=== PATIENT | female | born 1990 | race African-American/Black ===

== ENCOUNTER 2016-12-07 18:22 | Emergency (ER) | payer OTHER, SELFPAY ==
--- NOTE | 2016-12-07 19:41 | RAD ---
RIGHT FOREARM TWO VIEWS: 12/07/16 HISTORY: 26-year-old female with right forearm pain following an injury. IMPRESSION: No fracture, dislocation or other significant acute osseous abnormality. POS: DELORES
== END 2016-12-07 20:45 | disposition home or self-care (01) ==
LOC: ERS 18:22
DX: S50.11XA Contusion of right forearm, initial encounter (principal); W22.8XXA Striking against or struck by other objects, initial encounter

== ENCOUNTER 2017-04-19 20:57 | Emergency (ER) | payer SELFPAY ==
[2017-04-19 21:59] LABS: Bilirubin Negative (Negative); Blood, Urine Negative (Negative); Clarity CLEAR (Clear); Glucose, Urine (Dipstick) Negative (Negative); Leukocyte Negative (Negative); Nitrite Negative (Negative); Protein, Urine (Dipstick) Negative (Neg-Trace); Specific Gravity, Urine 1.008 (1.002-1.036); Urobilinogen 0.2 mg/dL (0.2-1.0); pH, Urine 7.5 (5.0-9.0)
== END 2017-04-19 22:40 | disposition home or self-care (01) ==
LOC: ERS 20:57
DX: O99.89 Other specified diseases and conditions complicating pregnancy, childbirth and the puerperium (principal); R10.31 Right lower quadrant pain; Z3A.12 12 weeks gestation of pregnancy
CPT/HCPCS: 81003

== ENCOUNTER 2017-07-20 13:30 | Outpatient (CLI) | payer OTHER ==
--- NOTE | 2017-07-20 15:07 | ULT ---
OB ULTRASOUND: HISTORY: female. Evaluate size, dates, and anatomy. TECHNIQUE: Multiplanar, reyes scale, and color Doppler images were obtained in a transabdominal ultrasound. FINDINGS: There is a single live intrauterine with heart rate of 143 b.p.m. Estimated age of the fet us based off today's examination is 23 weeks 6 days. A survey was performed which is unremarka ble. The head, intracranial structures, heart, stomach, kidneys, umbilical cord, umbilical cord inse rtion, spine, face, and extremities were evaluated and were normal. The following measurements were taken and dates based off these measurements based off these measures are as follows: BPD 5.98 cm, 24 weeks 3 days HC 22.96 cm, 24 weeks 1 day AC 18.74 cm, 23 weeks 4 days FL 4.21 cm, 23 weeks 5 days The placenta is posterior in location without focal abnormality. MELISSA is 13.8 cm, which is normal. T he cervix is normal in length without evidence of placenta previa. IMPRESSION: Single live intrauterine with estimated age of 23 weeks 6 days. POS: DELORES
== END 2017-07-20 13:31 | disposition home or self-care (01) ==
LOC: SCSULT 13:30
PROVIDERS: ATTEND Nurse Practitioner
DX: Z34.82 Encounter for supervision of other normal pregnancy, second trimester (principal); Z3A.23 23 weeks gestation of pregnancy
CPT/HCPCS: 76805

== ENCOUNTER 2019-09-20 20:17 | Emergency (ER) | payer OTHER, SELFPAY ==
[2019-09-20 20:48] LABS: Bacteria/HPF 4+ HPF (None Seen); Bilirubin Negative (Negative); Blood, Urine Negative (Negative); Clarity Turbid (Clear); Glucose, Urine (Dipstick) Normal (Negative); Ketone, Urine Negative (Negative); Leukocyte 500 Leu/uL (Negative); Nitrite 2+ (Negative); Protein, Urine (Dipstick) 20 mg/dL (Neg-Trace); RBC/HPF 0-3 HPF (0-3); Specific Gravity, Urine 1.016 (1.002-1.036); WBC/HPF 21-50 HPF (0-3); pH, Urine 6.5 (5.0-9.0)
[2019-09-20 21:33] LABS: Pregnancy Test - Urine (BHCG) POSITIVE (Negative)
[2019-09-20 21:34] LABS: Pregu Control Background? CLEAR/WHITE (CLR/WHITE); Pregu Control Bar Appear? YES (CONTROL BAR); Specific Gravity 1.016 (1.002-1.036)
== END 2019-09-20 22:13 | disposition home or self-care (01) ==
LOC: ERS 20:17
DX: O23.41 Unspecified infection of urinary tract in pregnancy, first trimester (principal); O99.331 Smoking (tobacco) complicating pregnancy, first trimester; F17.210 Nicotine dependence, cigarettes, uncomplicated
CPT/HCPCS: 81003; 81015; 81025; 99283

== ENCOUNTER 2020-01-02 12:26 | Inpatient (IN) | payer SELFPAY ==
[2020-01-02] MEDS ORDERED: Butorphanol Tartrate 1 MG/ML VIAL ONE (13:06)
[2020-01-02] MEDS ORDERED: Promethazine HCl 25 MG/ML VIAL IM PRN ×2 (13:25→17:27)
[2020-01-02] MEDS ORDERED: HYDROcodone/Acetaminophen 5/325 mg Tablet PO PRN ×3 (13:25→17:27)
[2020-01-02] MEDS ORDERED: Ibuprofen 800 MG TAB PO PRN (13:25)
[2020-01-02] MEDS ORDERED: hydrALAZINE 20 MG/ML VIAL SLOW IVP PRN ×2 (13:25→17:27)
[2020-01-02] MEDS ORDERED: Ondansetron PF 4 MG/2 ML Vial IVP PRN ×2 (13:25→17:27)
[2020-01-02] MEDS ORDERED: Lidocaine 1% (PF) 30 ML VIAL SC PRN (13:25)
[2020-01-02] MEDS ORDERED: Butorphanol Tartrate 1 MG/ML VIAL SLOW IVP PRN (13:25)
[2020-01-02] MEDS ORDERED: Lactated Ringer's 1,000 ML IV SCH ×2 (13:25)
[2020-01-02] MEDS ORDERED: NS / Oxytocin 40 units/1000ml 1,000 ML IV PRN (13:25)
--- NOTE | 2020-01-02 13:33 | DN ---
DATE OF PROCEDURE: 01/02/2020 TIME OF SERVICE: Approximately 1245 hours. PREDELIVERY DIAGNOSES: No care, assumed term gestation, cephalic, imminent delivery. POSTDELIVERY DIAGNOSES: No care, assumed term gestation, cephalic, imminent delivery, first to second-degree midline laceration. PROCEDURES PERFORMED: Spontaneous vaginal delivery in the emergency room with delivery of placenta in Labor and Delivery and repair of obstetrical laceration in Labor and Delivery. ANESTHESIA: 10 mL of 1% lidocaine. DISPOSITION: Routine recovery. FINDINGS: 1. Vigorous female , Apgars and weight are pending, to nursery. 2. Placenta delivered intact. 3. First to second-degree laceration of the perineal body, repaired with 2-0 chromic. DESCRIPTION OF PROCEDURE: Please see H and P for the history of the patient. She was noted to be complete, complete, and over one contraction, pushed for approximately 30 seconds and delivered spontaneous controlled manner in the Labor and Delivery Department. The was bundled, warmed, and delayed cord clamped and handed off to the team in attendance. The patient was then taken up to the Labor and Delivery unit. Upon presentation to Labor and Delivery unit, the placenta was delivering spontaneously. Cord blood sample was obtained and sent for analysis. The patient was prepped and lidocaine with epinephrine was injected for pain relief. The patient's behavior was somewhat uncontrolled. Decision was made to give her some Stadol and Phenergan. A straight catheterization was introduced and a urine sample was obtained from the patient prior to the administration of any medications other than IV fluids and Pitocin. This was sent for urine drug screen. Stadol and Phenergan were then given at a dose of 2 mg and 25 IV/IM. After this was done, vaginal prep was carried out and obstetrical laceration was identified, closed using a running continuous 2-0 chromic in the usual manner. Good hemostasis was noted. Counts were correct and the patient was entered into routine care. Job ID: [id number]
--- NOTE | 2020-01-02 13:37 | HP ---
PRESENTING COMPLAINT: Near term gestation, no care, in ambulance. HISTORY OF PRESENT ILLNESS: Ms. Aguilar is a 29-year-old, 3, para 2, unknown ROSA, no antepartum care during this because of the gutierrez stsol, whose water broke earlier in the day, she called the ambulance approximately 12:15, and they presented to the emergency department approximately 12:30. I was there present and when she arrived, she was examined and noted to be complete, complete, and +2. The patient is uncooperative, but reasonably cooperative with history taking. 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 Blood type is A positive with previous pregnancies. PAST MEDICAL HISTORY: Denies. PAST SURGICAL HISTORY: Denies. ALLERGIES: DENIES. MEDICATIONS: Denies. SOCIAL HISTORY: Denies drug abuse, although the patient's behavior is somewhat suspicious for that. FAMILY HISTORY: Noncontributory. REVIEW OF SYSTEMS: Noncontributory. PHYSICAL EXAMINATION: VITAL SIGNS: Blood pressure 148/72, pulse 85, respirations 18, and temperature 99.1. HEENT: Within normal limits. LUNGS: Clear to auscultation bilaterally. HEART: Regular rhythm. ABDOMEN: Soft, nontender except during contractions. Fundal height of 39, EFW of 7.5 pounds. : Vulvar lesions. Vagina, ruptured fluid. Cervix; complete, complete, +2 station, cephalic. EXTREMITIES: No clubbing, cyanosis, or edema. IMPRESSION: No care. Apparent term near delivery. PLAN: Stay in emergency room, deliver vaginally in the emergency room and proceed to Labor and Delivery for further care. Job ID: [id number]
[2020-01-02 13:55] VITALS: BMI 22.4
[2020-01-02 14:09] LABS: Amphetamine Detected (NotDetected); Barbiturates Screen Not Detected (NotDetected); Benzodiazepine Screen Not Detected (NotDetected); Cocaine Metabolite Screen Not Detected (NotDetected); Medtox Control Line Valid? VALID (VALID); Medtox Reader # READER 1; Methadone Not Detected (NotDetected); Methamphetamine Detected (NotDetected); Opiate Screen Not Detected (NotDetected); Oxycodone Screen Not Detected (NotDetected); Phencyclidine (PCP) Not Detected (NotDetected); THC/Cannabinoid Screen Detected (NotDetected); Tricyclic Screen Not Detected (NotDetected)
[2020-01-02 15:32] LABS: Hemoglobin 5.5 g/dL (12.0-16.0); Mean Corpuscular HGB CONC 28.6 g/dL (32.0-36.0); Mean Corpuscular Hemoglobin 19.8 pg (27.0-31.0); Mean Corpuscular Volume 69.3 fL (78.0-98.0); Mean Platelet Volume 10.9 fL (7.4-10.4); Platelet Count 201 thou/uL (130-400); RBC Distribution Width 23.1 % (11.5-14.5); Red Blood Cell (RBC) Count 2.77 mill/uL (4.20-5.40); White Blood Cell (WBC) Count 17.9 thou/uL (4.8-10.8)
[2020-01-02 15:51] LABS: HBSAg Index 0.18 S/CO (0-0.99); HIV (1/2) Antibody/Antigen Non-Reactive (NonReactive); HIV 1/2 INDEX 0.09 S/CO (<1.00); Hep B Surf Ag Non-Reactive S/CO (NonReactive)
[2020-01-02 16:05] LABS: Syphilis Antibody Nonreactive (Nonreactive); Syphilis Antibody Index 0.06 S/CO (<1.00 Non-Reactive)
[2020-01-02] MEDS ORDERED: Benzocaine-Menthol 82.5 ML CAN TOP PRN (17:27)
[2020-01-02] MEDS ORDERED: diphenhydrAMINE 25 MG CAP PO PRN (17:27)
[2020-01-02] MEDS ORDERED: Bisacodyl 10 MG SUPP PR PRN (17:27)
[2020-01-02] MEDS ORDERED: Milk Of Magnesia 30 ML UDCUP PO PRN (17:27)
[2020-01-02] MEDS ORDERED: Preparation H Ointment 28 GM TUBE PR PRN (17:27)
[2020-01-02] MEDS ORDERED: Adacel (T-DAP) 0.5 ML SYRINGE IM ONE (17:27)
[2020-01-02] MEDS ORDERED: NS / Oxytocin 40 units/1000ml 1,000 ML IV SCH (17:30)
[2020-01-02] MEDS: HYDROcodone/Acetaminophen 5/325 mg Tablet PO PRN (19:53)
[2020-01-02] MEDS: Docusate Calcium (SURFAK) 240 MG CAP PO SCH (19:53)
[2020-01-02] MEDS: Ibuprofen 800 MG TAB PO SCH (22:29)
[2020-01-03] MEDS: Ibuprofen 800 MG TAB PO SCH ×5 (00:30→23:41)
[2020-01-03] MEDS: HYDROcodone/Acetaminophen 5/325 mg Tablet PO PRN ×3 (05:32→21:02)
--- NOTE | 2020-01-03 07:38 | PRG ---
DATE OF SERVICE: 01/03/2020 TIME OF SERVICE: 0700. SUBJECTIVE: Ms. Aguilar is resting comfortably this morning. She has no complaints. Nurses report normal lochia. No elevated QBL. OBJECTIVE: VITAL SIGNS: Temperature 98.6, pulse 73, respirations 14, blood pressure 135/94. HEENT: Within normal limits. LUNGS: Clear to auscultation bilaterally. HEART: Regular rhythm. ABDOMEN: Her fundus is firm. Nontender. EXTREMITIES: Without clubbing, cyanosis, or edema. LABORATORY DATA: Hematocrit was 19.2% with a hemoglobin of 5.5, white count was 17.9 on admission, platelet count was 201. Urine drug screen was positive for methamphetamines and cannabinoids. HIV, hepatitis B, and syphilis are negative. COVID testing pending. IMPRESSION: 1. No care, status post delivery at term. 2. First-degree laceration repaired. 3. Maternal drug use with positive drug screen at delivery. 4. Chronic iron deficiency anemia. PLAN: Routine care. Anticipate keeping the patient for another day. CPS involvement and Social Work consult. We will follow the patient clinically. No indication for blood transfusion at this time as patient has negative symptoms and negative pulsatile. Job ID: [id number]
[2020-01-03] MEDS: Ferrous Sulfate 325 MG TAB PO SCH ×2 (08:11→16:39)
[2020-01-03] MEDS: Docusate Calcium (SURFAK) 240 MG CAP PO SCH ×2 (08:11→21:02)
[2020-01-03] MEDS: Prenatal Vitamin 1 TAB PO SCH (08:11)
--- NOTE | 2020-01-03 09:59 | PDOC.BPN ---
- Brief Progress Note Encounter Date: 01/03/20 Encounter Time: 09:[address] Concepcion. Noted delivery in ED with pos screen for methampethamines. CPS has been involved. Patient cleared by Dr Concepcion for PM DC and I placed the order. We have notified case management.
[2020-01-03 11:58] LABS: SARS-CoV-2 MS2 Positive; SARS-CoV-2 N Gene Negative; SARS-CoV-2 S Gene Negative; SARS-CoV-2 by NAA Not Detected (NotDetected); SARS-CoV-2 orf1ab Negative
--- NOTE | 2020-01-03 16:21 | PDOC.BPN ---
- Brief Progress Note Encounter Date: 01/03/20 Encounter Time: 16:20 Patient cleared for DC this pm but she desires to stay until tomorrow. We will hold today and resume DC order tomorrow AM if all well
[2020-01-04] MEDS: Ibuprofen 800 MG TAB PO SCH ×4 (00:24→19:41)
--- NOTE | 2020-01-04 05:13 | PDOC.BPN ---
- Brief Progress Note Encounter Date: 01/04/20 Encounter Time: 05:10 vitals reviewed. No acute issues. case also reviewed with Kayla on PP. Resume DC order this AM.
[2020-01-04] MEDS: HYDROcodone/Acetaminophen 5/325 mg Tablet PO PRN (05:57)
[2020-01-04] MEDS: Docusate Calcium (SURFAK) 240 MG CAP PO SCH ×2 (09:40→22:06)
[2020-01-04] MEDS: Ferrous Sulfate 325 MG TAB PO SCH ×2 (09:40→19:41)
[2020-01-04] MEDS: Prenatal Vitamin 1 TAB PO SCH (09:40)
--- NOTE | 2020-01-04 16:07 | OP ---
DATE OF PROCEDURE: 01/04/2020 TIME OF SERVICE: 1530 hours. Ms. Aguilar is a 29-year-old G3, P3, now well known to me. I delivered her in the emergency room 2 days ago with no care or positive methamphetamines. She was taken back to Labor and Delivery after vaginal delivery for delivery of placenta. She was quite uncooperative and inconsolable, likely secondary to both pain and her methamphetamine intoxication. She delivered her placenta spontaneously and was noted to have slight accessory lobe, but seen to deliver intact. She had a first-degree laceration repair performed under local anesthetic with IV sedation. Today, she was getting ready to be discharged home and stated something was coming out of her vagina. Nurse called me to view and the patient was noted to have membranes coming out of the vagina. The patient was very cooperative in bed, was in frog-legged position. Upon pulling on this area, it seemed to be consistent with more retained accessory lobe with membranes. Gentle traction was applied and over the course about 5 minutes, delivered spontaneously. Digital exam did not reveal any further placenta or membranes and bleeding was minimal. The patient's hematocrit was 19.2 with a hemoglobin of 5.5, however, throughout the period, she has been afebrile with a pulse in the 80s. Secondary to this, decision was made not to perform blood transfusion, only discharge the patient home on oral iron. Discussed with the patient options and at this point in time, we will observe for another hour. If everything is fine and no significant bleeding noted, we will discharge home. ER precautions for fever, uterine tenderness, etc. The patient's uterus was noted to be very nontender and she had no foul-smelling discharge during this procedure. Remainder of placenta was not sent for pathology as it was grossly within normal limits. Job ID: [id number]
--- NOTE | 2020-01-04 17:35 | PRG ---
DATE OF SERVICE: 01/04/2020 TIME OF SERVICE: 1700 hours. Ms. Aguilar is doing well. Her bleeding is minimal. She is however having continued pulse in the 100 to 105 range. Considering the patient's hemoglobin of 5.5, secondary to chronic iron deficiency anemia and her state, we will go ahead and transfuse 1 unit of PRBCs and observe the patient overnight. Anticipate discharge home on 11/01 a.m. Job ID: [id number]
[2020-01-05] MEDS: Ibuprofen 800 MG TAB PO SCH (05:35)
--- NOTE | 2020-01-05 07:06 | PDOC.PP ---
Post Progress Note Post Day #: 3 Subjective: No complaints this morning. States she really isnt having much of any vaginal bleeding at this point. No fevers/chills, abdominal pain. PO intake tolerated: yes Flatus: yes Ambulation: yes Vital Signs (12 hours) Temp Pulse Pulse Resp BP BP Pulse Ox 01/05/20 05:35 98.9 F 88 16 148/74 H 100 01/05/20 01:48 [place] 98.3 F 83 16 134/80 100 01/04/20 22:06 98.6 F 92 18 133/72 Weight Weight 61.235 kg - Physical Examination General: NAD Cardiovascular: RRR Respiratory: clear to auscultation bilaterally Abdominal: + bowel sounds, no distention, appropriately TTP Neurological: no gross focal deficits Psychiatric: A&Ox3, normal affect Result Diagrams: 01/02/20 14:52 Additional Labs: Post Labs Hep Bs Antigen Non-Reactive S/CO (NonReactive) 01/02/20 14:40 Rubella IgG Antibody 1.81 index (Immune >0.99) 01/02/20 14:52 Blood Type A POSITIVE 01/02/20 14:52 - Assessment/Plan No care Presumed 3T - delivered via Polysubstance abuse Retained POC -Received 1 unit PRBC yesterday, symptomatically improved w/o complaints this morning -Plans to follow up with Dr. Donald -PP course has progressed normally outside of OC - no further vaginal bleeding Plan: DC home later this morning. F/u w/ Dr. Donald 2 weeks.
[2020-01-05] MEDS: Docusate Calcium (SURFAK) 240 MG CAP PO SCH (08:59)
[2020-01-05] MEDS: Ferrous Sulfate 325 MG TAB PO SCH (08:59)
[2020-01-05] MEDS: Prenatal Vitamin 1 TAB PO SCH (08:59)
[2020-01-05 09:26] VITALS: BP 142/79; TEMP 98.5
== END 2020-01-05 12:35 | disposition home or self-care (01) | DRG 806 ==
LOC: ERS 12:26 → L&D 12:31 → 3SW 16:35
PROVIDERS: ADMIT Family Medicine; ATTEND Family Medicine
PROC: 10E0XZZ Delivery of Products of Conception, External Approach (ICD-10-PCS; principal; 2020-01-02)
PROC: 0KQM0ZZ Repair Perineum Muscle, Open Approach (ICD-10-PCS; 2020-01-02)
DX: O62.3 Precipitate labor (principal); O99.324 Drug use complicating childbirth; Z37.0 Single live birth; Z20.828 Contact with and (suspected) exposure to other viral communicable diseases; F19.10 Other psychoactive substance abuse, uncomplicated; O99.02 Anemia complicating childbirth; D50.9 Iron deficiency anemia, unspecified; O70.1 Second degree perineal laceration during delivery; Z3A.00 Weeks of gestation of pregnancy not specified
CPT/HCPCS: 36415; 36430; 80306; 85027; 86762; 86780; 86850; 86900; 86901; 87340; 87389; 87635; 99284; 99285; P9016; U0003

== ENCOUNTER 2020-07-23 14:53 | Emergency (ER) | payer SELFPAY ==
[2020-07-23] MEDS ORDERED: traMADol HCl 50 MG TAB ONE (16:29)
== END 2020-07-23 17:14 | disposition home or self-care (01) ==
LOC: ERS 14:53
DX: K02.9 Dental caries, unspecified (principal); K03.81 Cracked tooth
CPT/HCPCS: 99282

== ENCOUNTER 2024-12-24 18:14 | Emergency (ER) | payer SELFPAY ==
[2024-12-24] MEDS ORDERED: Acetaminophen 500 MG TAB ONE (19:23)
[2024-12-24 20:47] LABS: Pregnancy Test - Urine (BHCG) POSITIVE (Negative); Pregu Control Background? CLEAR/WHITE (CLR/WHITE); Pregu Control Bar Appear? YES (CONTROL BAR)
[2024-12-24 20:49] LABS: Bacteria/HPF 2+ HPF (None Seen); CAUTI Indications for Culture Dysuria,urgency,freq; Glucose, Urine (Dipstick) Normal (Negative); Leukocyte 500 Leu/uL (Negative); Protein, Urine (Dipstick) Negative (Neg-Trace); RBC/HPF 0-3 HPF (0-3); Specific Gravity, Urine 1.014 (1.002-1.036); WBC/HPF 21-50 HPF (0-3)
[2024-12-24 20:55] LABS: Urine Culture Reflex Yes Yes
[2024-12-24 21:20] LABS: #Basophils Less than 0.03 10x3/uL (0.0-0.2); #Eosinophils 0.03 10x3/uL (0.0-0.7); #Monocytes 0.56 10x3/uL (0.11-0.59); #Neutrophils 6.18 10x3/uL (1.40-6.50); %Basophils 0.1 % (0.0-1.0); %Eosinophils 0.3 % (0.0-10.0); %Lymphocytes 27.1 % (21.0-51.0); %Monocytes 6.0 % (0.0-10.0); %Neutrophils 66.1 % (42.0-75.0); Hematocrit 13.3 % (36.0-47.0); Hemoglobin 4.1 g/dL (12.0-16.0); Mean Corpuscular Hemoglobin 25.2 pg (27.0-31.0); Mean Corpuscular Volume 81.6 fL (78.0-98.0); Platelet Count 147 10x3/uL (130-400); Red Blood Cell (RBC) Count 1.63 mill/uL (4.20-5.40); White Blood Cell (WBC) Count 9.35 10x3/uL (4.8-10.8)
[2024-12-24 21:31] LABS: BHCG - Serum POSITIVE (NEGATIVE); Pregs Control Background? CLEAR/WHITE (CLR/WHITE); Pregs Control Bar Appear? YES (CONTROL BAR)
[2024-12-24 21:34] LABS: ALT (SGPT) Less than 7 U/L (Less than 34); AST (SGOT) 17 U/L (11-34); Albumin 3.5 g/dL (3.1-4.5); Alkaline Phosphatase 45 U/L (40-110); Anion Gap 12 mmol/L (10-20); BUN (Urea Nitrogen) 16 mg/dL (7.0-18.7); Bilirubin, Total 0.3 mg/dL (0.3-1.2); Calc. Creatinine Clearance 0 mL/min (70-130); Calcium 8.1 mg/dL (7.8-10.44); Carbon Dioxide 26 mmol/L (22-29); Chloride 101 mmol/L (98-107); Globulin 2.6 g/dL (2.4-3.5); Glucose 112 mg/dL (70-105); Lipase 13 U/L (8-78); Potassium 3.0 mmol/L (3.5-5.1); Sodium 136 mmol/L (136-145)
[2024-12-24] MEDS ORDERED: Tranexamic Acid 1,000 MG/10 ML VIAL ONE ×2 (22:06→22:38)
[2024-12-24 23:54] LABS: Chlamydia by PCR, Vaginal Swab Not Detected (NotDetected); GC by PCR, Vaginal Swab Not Detected (NotDetected)
== END 2024-12-24 22:57 | disposition short-term general hospital (02) ==
LOC: ERS 18:14
DX: O00.90 Unspecified ectopic pregnancy without intrauterine pregnancy (principal); A59.9 Trichomoniasis, unspecified
CPT/HCPCS: 36415; 36430; 80053; 81001; 81025; 83690; 84702; 84703; 85025; 86850; 86900; 86901; 87077; 87086; 87186; 87480; 87491; 87510; 87591; 87660; 96365; P9016; Q0162